=== PATIENT | female | born 2000 | race Caucasian/White ===

== ENCOUNTER 2019-03-17 20:12 | Emergency (ER) | payer OTHER ==
[2019-03-17 20:41] VITALS: BP 107/67
[2019-03-17] MEDS ORDERED: IBUPROFEN 800 MG TABLET PO ONE (20:56)
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
== END 2019-03-17 22:54 | disposition left against medical advice (07) ==
LOC: ER 20:12
DX: M54.5 Low back pain (principal); V40.9XXA Unspecified car occupant injured in collision with pedestrian or animal in traffic accident, initial encounter; Z53.20 Procedure and treatment not carried out because of patient's decision for unspecified reasons
CPT/HCPCS: 99281; 99283

== ENCOUNTER 2019-03-18 16:16 | Emergency (ER) | payer OTHER ==
[2019-03-18] MEDS ORDERED: ACETAMINOPHEN 325 MG TABLET PO ONE (16:39)
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
[2019-03-18 17:07] LABS: APPEARANCE,URINE SLIGHTLY-CLOUDY; BILIRUBIN,URINE NEGATIVE (NEGATIVE); COLOR,URINE YELLOW; GLUCOSE, URINE NEGATIVE (NEGATIVE); KETONES,URINE NEGATIVE (NEGATIVE); LEUKOCYTE ESTERASE,URINE LARGE (NEGATIVE); NITRITE,URINE NEGATIVE (NEGATIVE); PROTEIN,URINE NEGATIVE (NEGATIVE); UROBILINOGEN,URINE NEGATIVE mg/dL (<2.0)
[2019-03-18 18:06] VITALS: BP 105/69
== END 2019-03-18 18:05 | disposition home or self-care (01) ==
LOC: ER 16:16
DX: N30.01 Acute cystitis with hematuria (principal); M54.9 Dorsalgia, unspecified; R11.0 Nausea
CPT/HCPCS: 81001; 81025; 99283

== ENCOUNTER 2019-08-22 20:52 | Emergency (ER) | payer OTHER ==
--- NOTE | 2019-08-22 21:47 | ER Document Report ---
ED Medical Screen (RME) - General Chief Complaint: Chest Pain Stated Complaint: CHEST PAINS Notes: Patient is a 18-year-old female with no significant past medical history presents to the emergency department with a chief complaint of torso pain. She states pain is began recently as a left lower quadrant pain. She states the pain then went to the left upper quadrant. Reports that it radiated around to the left side of the back up and down the left side. She states recently and has been painful to the left lower chest wall anteriorly. She states at the present moment she is having bilateral lower abdominal discomfort. She states she is concerned as the pain persists. Admits to an associated shortness of breath from time to time. She denies any recent travel or known sick contacts. Denies any fever, chills or night sweats. Denies any urinary complaints, vaginal bleeding or discharge. TRAVEL OUTSIDE OF THE [place] IN LAST 30 DAYS: No - Related Data Allergies/Adverse Reactions: No Known Drug Allergies Allergy (Verified 08/22/19 21:45) Past Medical History - Immunizations Immunizations up to date: Yes Physical Exam - Vital signs Vitals: Temp Pulse Resp BP Pulse Ox 98.3 F 67 20 95/84 L 94 08/22/19 21:13 08/22/19 21:13 08/22/19 21:13 08/22/19 21:13 08/22/19 21:13 Course - Vital Signs Vital signs: Temp Pulse Resp BP Pulse Ox 98.3 F 67 20 95/84 L 94 08/22/19 21:13 08/22/19 21:13 08/22/19 21:13 08/22/19 21:13 08/22/19 21:13
--- NOTE | 2019-08-22 21:47 | EKG REPORT ---
SEVERITY:- ABNORMAL ECG - SINUS RHYTHM INCOMPLETE RIGHT BUNDLE BRANCH BLOCK : Confirmed by: Any Clarke MD 22-Aug-2019 21:46:42
[2019-08-22 22:30] LABS: ABSOLUTE BASOPHILS # (AUTO) 0.1 10^3/uL (0.0-0.2); ABSOLUTE EOSINOPHILS # (AUTO) 0.2 10^3/uL (0.0-0.6); ABSOLUTE LYMPHOCYTES (AUTO) 2.7 10^3/uL (0.5-4.7); ABSOLUTE MONOCYTES (AUTO) 0.6 10^3/uL (0.1-1.4); ABSOLUTE NEUT (AUTO) 2.5 10^3/uL (1.7-8.2); EOSINOPHILS % (AUTO) 4.1 % (0-6); HEMATOCRIT 39.7 % (36.0-47.0); HEMOGLOBIN 13.4 g/dL (12.0-15.5); LYMPHOCYTES % (AUTO) 43.8 % (13-45); MEAN CORPUSCULAR HEMOGLOBIN 32.2 pg (27.0-33.4); MEAN CORPUSCULAR HGB CONC 33.7 g/dL (32.0-36.0); MEAN CORPUSCULAR VOLUME 96 fl (80-97); MONOCYTES % (AUTO) 9.6 % (3-13); PLATELET COUNT 270 10^3/uL (150-450); RED BLOOD COUNT 4.14 10^6/uL (3.72-5.28); RED CELL DISTRIBUTION WIDTH 13.7 % (11.5-14.0); SEGMENTED NEUTROPHILS % (AUTO) 41.5 % (42-78); TOTAL CELLS COUNTED % (AUTO) 100 %; WHITE BLOOD COUNT 6.1 10^3/uL (4.0-10.5)
[2019-08-22 22:35] LABS: APPEARANCE,URINE CLOUDY; BILIRUBIN,URINE NEGATIVE (NEGATIVE); COLOR,URINE YELLOW; GLUCOSE, URINE NEGATIVE (NEGATIVE); KETONES,URINE NEGATIVE (NEGATIVE); PROTEIN,URINE 30 mg/dL (NEGATIVE); URINE SPECIFIC GRAVITY 1.024; UROBILINOGEN,URINE NEGATIVE mg/dL (<2.0)
[2019-08-22 22:49] LABS: ALBUMIN 4.3 g/dL (3.7-5.6); ALKALINE PHOSPHATASE 43 U/L (50-135); ANION GAP 9 (5-19); ASPARTATE AMINO TRANSFERASE 19 U/L (5-30); BILIRUBIN,DIRECT 0.2 mg/dL (0.0-0.4); BILIRUBIN,TOTAL 0.3 mg/dL (0.2-1.3); CALCIUM 9.7 mg/dL (8.4-10.2); CARBON DIOXIDE 28 mmol/L (22-30); CHLORIDE 102 mmol/L (98-107); GLUCOSE 100 mg/dL (75-110); TOTAL PROTEIN 7.2 g/dL (6.3-8.2)
[2019-08-22 22:54] LABS: BLOOD UREA NITROGEN 12 mg/dL (7-20)
--- NOTE | 2019-08-23 01:02 | ER Document Report ---
Entered by DIANE AVELAR SCRIBE 08/23/19 0027 Acting as scribe for:ELIZABETH LÓPEZ DO ED General - General Chief Complaint: Leg Pain Stated Complaint: CHEST PAINS Time Seen by Provider: 08/23/19 00:14 Information source: Patient Notes: This 18-year-old female presents to the emergency department complaining of LLQ abdominal pain that began about a week ago. Patient reports that now she is having pain in her RLQ that wrap around and up her left side of her back. Patient states that pain is worse with movement, deep breaths and coughing. Patient reports being short of breath occasionally. Patient denies vaginal discharge, chills and leg swelling. 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 Patient reports that her last normal menstrual period was 2 weeks ago. TRAVEL OUTSIDE OF THE [place] IN LAST 30 DAYS: No - Related Data Allergies/Adverse Reactions: No Known Drug Allergies Allergy (Verified 08/22/19 21:45) Past Medical History - General Information source: Patient - Social History Smoking Status: Former Smoker Cigarette use (# per day): No Chew tobacco use (# tins/day): No Frequency of alcohol use: None Drug Abuse: None, Marijuana Occupation: local cafe or restaurant manager Family History: Reviewed & Not Pertinent Patient has suicidal ideation: No Patient has homicidal ideation: No - Medical History Medical History: Negative Surgical Hx: Negative - Immunizations Immunizations up to date: Yes Review of Systems - Review of Systems Constitutional: See HPI. denies: Chills EENT: No symptoms reported Cardiovascular: No symptoms reported Respiratory: No symptoms reported Gastrointestinal: See HPI, Abdominal pain Genitourinary: No symptoms reported Female Genitourinary: See HPI, Last menstrual period - 2 weeks ago. denies: Vaginal discharge Musculoskeletal: See HPI. denies: Leg swelling Skin: No symptoms reported Hematologic/Lymphatic: No symptoms reported Neurological/Psychological: No symptoms reported -: Yes All other systems reviewed and negative Physical Exam - Vital signs Vitals: Temp Pulse Resp BP Pulse Ox 98.3 F 67 20 95/84 L 94 08/22/19 21:13 08/22/19 21:13 08/22/19 21:13 08/22/19 21:13 08/22/19 21:13 - Notes Notes: Physical Exam: General: Alert, appears well. HEENT: Normocephalic. Atraumatic. PERRL. Extraocular movements intact. Oropharynx clear. Mild facial acne. Neck: Supple. Non-tender. Respiratory: No respiratory distress. Clear and equal breath sounds bilaterally. Cardiovascular: Regular rate and rhythm. Abdominal: Mild tenderness to palpation to LLQ, RLQ and suprapubic region. No distension. Normal Bowel Sounds. Back: No gross abnormalities. Extremities: Moves all four extremities. Upper extremities: Normal inspection. Normal ROM. Lower extremities: Normal inspection. No edema. Normal ROM. Neurological: Normal cognition. AAOx4. Normal speech. Psychological: Normal affect. Normal Mood. Skin: Warm. Dry. Normal color. Course - Vital Signs Vital signs: Temp Pulse Resp BP Pulse Ox 98.3 F 67 12 138/84 H 100 08/22/19 21:13 08/22/19 21:13 08/23/19 01:09 08/23/19 01:09 08/23/19 01:09 - Laboratory Result Diagrams: 08/22/19 22:09 08/22/19 22:09 Laboratory results interpreted by me: 08/22/19 08/22/19 08/22/19 22:09 22:09 22:09 Seg Neutrophils % 41.5 L Alkaline Phosphatase 43 L Urine Protein 30 H Leukocyte Esterase Rfl LARGE H - Diagnostic Test Radiology reviewed: Image reviewed, Reports reviewed - EKG Interpretation by Me EKG shows normal: Sinus rhythm Rate: Normal Rhythm: NSR - NSR Nl [place] RBBB [address] elevation or depression my int erpretation. Discharge - Discharge Clinical Impression: UTI (urinary tract infection) Qualifiers: Urinary tract infection type: acute cystitis Hematuria presence: with hematuria Qualified Code(s): N30.01 - Acute cystitis with hematuria Condition: Good Disposition: HOME, SELF-CARE Instructions: Urinary Tract Infection ([facility]), Low Back Pain ([facility]), Anxiety ([facility]) Additional Instructions: Use control if you choose to have sexual relations. Take the antibiotic as directed. Take the antiinflamatory as needed for pain. See your doctor in follow up. Please return here for any problems or any concerns. I personally performed the services described in the documentation, reviewed and edited the documentation which was dictated to the scribe in my presence, and it accurately records my words and actions.
--- NOTE | 2019-08-23 01:08 | RADIOLOGY REPORT (SQ) ---
EXAM DESCRIPTION: PA and lateral radiographs of the chest. CLINICAL HISTORY: 18 years Female, dyspnea COMPARISON: None. FINDINGS: Lungs: Lungs are clear. No pneumonia or edema. No pneumothorax or pleural effusion. Mediastinum: Cardiac and mediastinal silhouette are normal. Bones: Osseous structures are normal. Bilateral chest wall piercing. IMPRESSION: Unremarkable radiographs of the chest
[2019-08-23] MEDS ORDERED: NAPROXEN 250 MG TABLET PO ONE (01:19)
[2019-08-23 01:52] VITALS: BP 138/84
[2019-08-23] MEDS ORDERED: CEPHALEXIN 500 MG CAPSULE PO ONE (01:56)
[2019-08-23 03:26] LABS: CHLAM PCR DETECTED (NOT DETECT)
== END 2019-08-23 02:21 | disposition home or self-care (01) ==
LOC: ER 20:52
DX: N30.01 Acute cystitis with hematuria (principal); R10.32 Left lower quadrant pain; R10.31 Right lower quadrant pain; M54.9 Dorsalgia, unspecified; R07.9 Chest pain, unspecified; R05 Cough; R06.02 Shortness of breath; Z87.891 Personal history of nicotine dependence; F12.10 Cannabis abuse, uncomplicated
CPT/HCPCS: 36415; 71046; 80053; 81001; 81025; 83690; 85025; 85379; 87491; 87591; 93005; 93010; 99284